=== PATIENT | male | born 2000 | race Hispanic/Latino ===

== ENCOUNTER 2025-02-15 15:59 | Emergency (ER) | payer OTHER ==
[~2025-02-15] VITALS: Ht 177.8 cm; Wt 108.9 kg
[2025-02-15] MEDS ORDERED: LISINOPRIL10 MG PO (17:02)
[2025-02-15 18:41] VITALS: PULSE 90; RESP 16; TEMP 99; O2SAT 97
== END 2025-02-15 18:56 | disposition home or self-care (01) ==
LOC: FSED 16:39
DX: N50.812 Left testicular pain (principal); I86.1 Scrotal varices; I10 Essential (primary) hypertension
CPT/HCPCS: 76870; 81003; 93976; 99283